=== PATIENT | male | born 1980 | race Asian ===

== ENCOUNTER 2021-11-10 17:09 | Outpatient (CLI) | payer BC ==
[2021-11-11 20:18] LABS: SARS-CoV-2 PCR by NAA Not Detected (NotDetected)
== END 2021-11-10 17:10 | disposition home or self-care (01) ==
LOC: CSHLAB 17:09
PROVIDERS: ATTEND Surgery
DX: Z20.822 Contact with and (suspected) exposure to COVID-19 (principal); K64.9 Unspecified hemorrhoids
CPT/HCPCS: U0003; U0005

== ENCOUNTER 2021-11-13 05:55 | Day surgery (SDC) | payer BC ==
[2021-11-10 13:18] VITALS: BMI 25.7
[2021-11-13] MEDS ORDERED: Lidocaine 1% MPF 2 ML VIAL ONE (06:15)
[2021-11-13] MEDS ORDERED: Lidocaine 2% Jelly 5 ML TUBE ONE (06:53)
[2021-11-13] MEDS ORDERED: EPINEPHrine 1 MG/ML AMP ONE (06:53)
[2021-11-13] MEDS ORDERED: Bupivacaine PF 0.5% 30 ML VIAL ONE (06:53)
[2021-11-13] MEDS ORDERED: PROPOFOL 20 ML ONE (06:54)
[2021-11-13] MEDS ORDERED: Ondansetron PF 4 MG/2 ML Vial ONE (06:55)
[2021-11-13] MEDS ORDERED: Fentanyl 100 MCG/2 ML VIAL ONE (06:55)
[2021-11-13] MEDS ORDERED: Lidocaine 1% PF 5 ML VIAL ONE (06:55)
[2021-11-13] MEDS ORDERED: Rocuronium Bromide 10 MG/ML (10ML VIAL) ONE (06:55)
[2021-11-13] MEDS ORDERED: Dexamethasone 4 mg/ml Vial ONE (06:55)
[2021-11-13] MEDS ORDERED: ceFOXitin 1 GM VIAL ONE (07:32)
[2021-11-13] MEDS ORDERED: HYDROcodone/Acetaminophen 5/325 mg Tablet PO PRN ×2 (08:32)
== END 2021-11-13 09:30 | disposition home or self-care (01) ==
LOC: CSHSDC 05:55
PROVIDERS: ATTEND Surgery
DX: K64.9 Unspecified hemorrhoids (principal); I10 Essential (primary) hypertension; Z87.891 Personal history of nicotine dependence
CPT/HCPCS: 88304; J0171; J0694; J1100; J2405; J2704; J3010; S0020